=== PATIENT | male | born 1945 | race Caucasian/White ===

== ENCOUNTER 2022-04-22 07:18 | Emergency (ER) | payer OTHER ==
[2022-04-22 08:15] VITALS: BP 156/72; PULSE 64; RESP 17; TEMP 97.6; BMI 31.5
== END 2022-04-22 08:55 | disposition home or self-care (01) ==
LOC: JER 07:18 → JERFT 07:18
DX: H60.322 Hemorrhagic otitis externa, left ear (principal)
CPT/HCPCS: 99281-25